=== PATIENT | female | born 1995 | race Two or more races ===

== ENCOUNTER 2021-01-22 13:56 | Inpatient (IN) | payer OTHER ==
[~2021-01-22] VITALS: Ht 149.9 cm; Wt 60.3 kg
[~2021-01-22 13:56] MED LIST: FOLIC ACID0.4 MG PO; IRON1 TAB PO; PRENATAL + DHA1 EAC1 PO; PRENATAL + DHA1 EACH PO
== END 2021-01-24 16:14 | disposition home or self-care (01) | DRG 805 ==
LOC: LDR 13:56 → OB/GYN 13:56
PROVIDERS: ADMIT Obstetrics & Gynecology; ATTEND Obstetrics & Gynecology
PROC: 10E0XZZ Delivery of Products of Conception, External Approach (ICD-10-PCS; principal; 2021-01-22)
PROC: 10907ZC Drainage of Amniotic Fluid, Therapeutic from Products of Conception, Via Natural or Artificial Opening (ICD-10-PCS; 2021-01-22)
PROC: 4A1HXFZ Monitoring of Products of Conception, Cardiac Rhythm, External Approach (ICD-10-PCS; 2021-01-22)
DX: O98.52 Other viral diseases complicating childbirth (principal); U07.1 COVID-19; Z37.0 Single live birth; Z3A.37 37 weeks gestation of pregnancy; O99.013 Anemia complicating pregnancy, third trimester; D64.9 Anemia, unspecified